=== PATIENT | male | born 1950 | race African-American/Black ===

== ENCOUNTER 2019-10-31 13:52 | Inpatient (IN) | payer MEDICARE, MEDICAID ==
[~2019-10-31] VITALS: Ht 188 cm; Wt 101.6 kg
[2019-10-31] MEDS ORDERED: SODIUM CHLORIDE 0.9% 500 ML IV ONE (15:16)
[2019-10-31 16:12] LABS: CHLORIDE 105 mEq/L (98-107)
[2019-10-31 16:13] LABS: BASOPHILS % 0.7 % (0.0-2.0); EOSINOPHILS % 0.7 % (0.0-5.0); HEMATOCRIT. 41.8 % (42.0-52.0); HEMOGLOBIN. 13.8 g/dL (14.0-18.0); LYMPHOCYTES % 22.8 % (20.0-50.0); MEAN CORPUSCULAR HEMOGLOBIN 28.8 pg (28.0-32.0); MEAN CORPUSCULAR VOLUME 87.3 fL (80.0-94.0); MEAN PLATELET VOLUME 10.1 fl (7.4-10.4); MONOCYTES % 8.1 % (2.0-8.0); NEUTROPHILS % 67.7 % (40.0-76.0); PLATELET 176 x1000/uL (130-400); RED BLOOD CELL COUNT 4.79 mill/uL (4.7-6.1); RED CELL DISTRIBUTION WIDTH 14.5 % (11.6-14.6)
[2019-10-31 16:21] LABS: CREATINE KINASE 185 IU/L (39-308)
[2019-10-31 17:53] LABS: CLARITY URINE CLOUDY (CLEAR); COLOR URINE YELLOW (YELLOW); KETONES URINE 1+ (NEGATIVE); LEUKOCYTE ESTERASE URINE TRACE (NEGATIVE); NITRITE URINE NEGATIVE (NEGATIVE); OCCULT BLOOD URINE NEGATIVE (NEGATIVE); PROTEIN URINE 1+ (NEGATIVE); SPECIFIC GRAVITY URINE 1.028 (1.005-1.030)
[2019-10-31] MEDS ORDERED: ONDANSETRON HCL 4MG/2ML INJ IV PRN (21:15)
[2019-10-31] MEDS ORDERED: DEXTROSE 50% WATER 50ML SYRINGE IV PRN (21:15)
[2019-10-31] MEDS ORDERED: BENZONATATE 100MG CAPSULE PO PRN (21:15)
[2019-10-31] MEDS ORDERED: ACETAMINOPHEN 325MG TABLET PO PRN (21:15)
[2019-11-01] VITALS (8 sets, daily range): BP systolic 97–164; BP diastolic 62–101
[2019-11-01] MEDS ORDERED: ATOR10TA69 PO (03:04)
[2019-11-01] MEDS ORDERED: DILT60TA41 PO (03:04)
[2019-11-01] MEDS ORDERED: TRAZ-252 PO (03:04)
[2019-11-01] MEDS ORDERED: AMLO5TAB88 PO (03:04)
[2019-11-01] MEDS ORDERED: LOSA25TA26 PO (03:04)
[2019-11-01] MEDS ORDERED: GABA-531 PO (03:04)
[2019-11-01] MEDS ORDERED: GLIP10TA10 PO (03:04)
[2019-11-01] MEDS: SODIUM CHLORIDE 0.9% 1,000 ML IV SCH ×2 (03:26→14:20)
[2019-11-01] MEDS: BLOOD SUGAR DIAGNOSTIC STRIP TEST SCH ×4 (06:04→20:58)
[2019-11-01] MEDS: INSULIN LISPRO 100 UNITS/ML SUBCUT SCH ×4 (08:34→20:58)
[2019-11-01] MEDS: ENOXAPARIN 40MG/0.4ML SYR SUBCUT SCH (12:57)
[2019-11-01 16:46] LABS: BASOPHILS % 0.6 % (0.0-2.0); EOSINOPHILS % 1.7 % (0.0-5.0); HEMATOCRIT. 39.1 % (42.0-52.0); HEMOGLOBIN. 12.9 g/dL (14.0-18.0); LYMPHOCYTES % 28.4 % (20.0-50.0); MEAN CORPUSCULAR HEMOGLOBIN 28.3 pg (28.0-32.0); MEAN CORPUSCULAR VOLUME 86.1 fL (80.0-94.0); MEAN PLATELET VOLUME 9.8 fl (7.4-10.4); MONOCYTES % 9.3 % (2.0-8.0); PLATELET 163 x1000/uL (130-400); RED BLOOD CELL COUNT 4.54 mill/uL (4.7-6.1); RED CELL DISTRIBUTION WIDTH 14.2 % (11.6-14.6)
[2019-11-02] MEDS: SODIUM CHLORIDE 0.9% 1,000 ML IV SCH (03:40)
[2019-11-02 04:00] VITALS: BP 144/83
[2019-11-02] MEDS: BLOOD SUGAR DIAGNOSTIC STRIP TEST SCH ×4 (07:29→21:14)
[2019-11-02 08:00] VITALS: BP 104/83
[2019-11-02] MEDS: INSULIN LISPRO 100 UNITS/ML SUBCUT SCH ×4 (08:20→21:16)
[2019-11-02 11:56] VITALS: BP 129/78
[2019-11-02] MEDS: ENOXAPARIN 40MG/0.4ML SYR SUBCUT SCH (12:36)
[2019-11-02 16:00] VITALS: BP_SYST 113; BP_SYST 128; BP_SYST 95; BP_DIAS 5; BP_DIAS 71; BP_DIAS 79
[2019-11-02 20:00] VITALS: BP 133/74
[2019-11-02] MEDS ORDERED: INSULIN GLARGINE UD 100 UNITS/ML SYR SUBCUT SCH (22:00)
[2019-11-03] VITALS: BP 101/78
[2019-11-03 04:00] VITALS: BP 110/71
[2019-11-03] MEDS: BLOOD SUGAR DIAGNOSTIC STRIP TEST SCH ×2 (06:33→11:24)
[2019-11-03 08:00] VITALS: BP 138/101
[2019-11-03] MEDS: INSULIN LISPRO 100 UNITS/ML SUBCUT SCH ×2 (08:33→13:44)
[2019-11-03] MEDS ORDERED: FLUDROCORTISONE ACETATE 0.1MG TABLET PO SCH (09:00)
[2019-11-03] MEDS ORDERED: INSULIN GLARGINE UD 100 UNITS/ML SYR SUBCUT SCH (10:00)
[2019-11-03 11:48] VITALS: BP_SYST 110; BP_SYST 171; BP_DIAS 113; BP_DIAS 78
[2019-11-03 11:49] VITALS: BP 93/61
[2019-11-03 13:11] VITALS: BP 110/78
== END 2019-11-03 14:10 | disposition home or self-care (01) | DRG 682 ==
LOC: ER 13:52 → EDBEDREQ 22:38 → EDBEDREQTM 22:38 → ENRESERV 22:55 → 8WST 11-01 00:51 → 7WST 11-01 02:32 → 6WST 11-01 23:08
PROVIDERS: ADMIT Internal Medicine; ATTEND Internal Medicine
DX: N17.9 Acute kidney failure, unspecified (principal); J96.00 Acute respiratory failure, unspecified whether with hypoxia or hypercapnia; G90.8 Other disorders of autonomic nervous system; N18.9 Chronic kidney disease, unspecified; I12.9 Hypertensive chronic kidney disease with stage 1 through stage 4 chronic kidney disease, or unspecified chronic kidney disease; E86.0 Dehydration; I95.1 Orthostatic hypotension; E78.5 Hyperlipidemia, unspecified; E11.22 Type 2 diabetes mellitus with diabetic chronic kidney disease; D72.829 Elevated white blood cell count, unspecified; Z20.828 Contact with and (suspected) exposure to other viral communicable diseases; Z89.421 Acquired absence of other right toe(s)
CPT/HCPCS: 36415; 71045; 80048; 80053; 81003; 82550; 82962; 83880; 84145; 84484; 85025; 93005; 93306; 97162; 97164; 99285; J1650; J1815; J2405; J7030; U0003-CS